=== PATIENT | male | born 1990 | race Caucasian/White ===

== ENCOUNTER 2023-04-14 06:43 | Emergency (ER) | payer SELFPAY | END 2023-04-14 06:53 | disposition left against medical advice (07) | LOC: EMS 06:45 | DX: R07.89 Other chest pain (principal); Z53.21 Procedure and treatment not carried out due to patient leaving prior to being seen by health care provider | CPT/HCPCS: 99281; Z7502 ==

== ENCOUNTER 2023-04-14 07:13 | Emergency (ER) | payer SELFPAY | END 2023-04-14 07:54 | disposition left against medical advice (07) | LOC: EMS 07:16 | DX: F41.9 Anxiety disorder, unspecified (principal); Z53.21 Procedure and treatment not carried out due to patient leaving prior to being seen by health care provider ==